=== PATIENT | female | born 1975 | race Caucasian/White ===

== ENCOUNTER 2017-08-04 22:04 | Emergency (ER) | payer MEDICAID ==
[~2017-08-04] VITALS: Ht 167.6 cm; Wt 119.0 kg
[~2017-08-04 22:04] MED LIST: CLON-529 PO; DULO-31 PO; HYDR1TAB PO; IBUP-1984 PO; ONDA4TAB12 PO; PSEU-225 PO
[2017-08-04 22:11] VITALS: BP 154/91
[2017-08-04] MEDS ORDERED: NAPR-56 PO (23:22)
== END 2017-08-04 23:34 | disposition home or self-care (01) ==
LOC: ER 22:05
DX: R10.9 Unspecified abdominal pain (principal); Z90.49 Acquired absence of other specified parts of digestive tract; Z91.040 Latex allergy status; Z79.899 Other long term (current) drug therapy
CPT/HCPCS: 99282

== ENCOUNTER 2017-10-31 18:40 | Emergency (ER) | payer MEDICAID ==
[~2017-10-31] VITALS: Ht 167.6 cm; Wt 118.2 kg
[2017-10-31 19:11] LABS: BASOPHILS % (AUTO) 0.2 % (0-1); EOSINOPHILS # (AUTO) 0.2 X10'3 (0-0.9); EOSINOPHILS % (AUTO) 1.6 % (0-6); HEMATOCRIT 37.5 % (35.0-45.0); HEMOGLOBIN 13.1 g/dl (12.0-16.0); LYMPHOCYTES # (AUTO) 2.1 X10'3 (1.1-4.8); LYMPHOCYTES % (AUTO) 17.3 % (21-51); MEAN CORPUSCULAR HEMOGLOBIN 29.1 PG (27.0-31.0); MEAN CORPUSCULAR VOLUME 83.2 FL (78-98); MEAN PLATELET VOLUME 8.8 FL (7.4-10.4); MONOCYTES # (AUTO) 0.9 X10'3 (0-0.9); NEUTROPHILS % (AUTO) 73.9 % (42-75); PLATELET COUNT 252 X10'3 (140-440); RED BLOOD COUNT 4.51 X10'6 (4.20-5.60); WHITE BLOOD COUNT 12.2 X10'3 (4.5-11.0)
[2017-10-31 19:13] LABS: CLARITY,URINE CLEAR (Clear); COLOR,URINE YELLOW (Yellow); GLUCOSE, URINE NEGATIVE (Neg); KETONES,URINE NEGATIVE (Neg); LEUKOCYTE ESTERASE ,URINE NEGATIVE (Neg); NITRITES, URINE NEGATIVE (Neg); OCCULT BLOOD,URINE LARGE (Neg); PH,URINE 5.5 (4.8-8.0); PROTEIN,URINE NEGATIVE (Neg); UROBILINOGEN,URINE 0.2 E.U/dL (0.2-1.0)
[2017-10-31 19:14] LABS: URINE HCG NEGATIVE (NEG)
[2017-10-31 19:16] LABS: UA COLLECTION TYPE CLN CATCH MIDSTREAM
[2017-10-31 19:25] LABS: BACTERIA,URINE 1+ /HPF (Neg); RBC,URINE 20-50 /HPF (0-2); WBC,URINE 0-4 /HPF (0-4)
[2017-10-31 19:26] LABS: SQUAMOUS EPITHELIAL CELL,UR MANY /LPF (FEW)
[2017-10-31] MEDS ORDERED: ketorolac trometh. 30mg/ml inj. IV ONE (19:30)
[2017-10-31 19:33] LABS: ALANINE AMINOTRANSFERASE 28 U/L (12-78); ALBUMIN 3.8 G/DL (3.4-5.0); ALKALINE PHOSPHATASE 90 IU/L (46-116); ANION GAP 11 (8-16); ASPARTATE AMINO TRANSFERASE 18 U/L (10-37); BILIRUBIN,TOTAL 0.4 MG/DL (0.1-1.0); BLOOD UREA NITROGEN 13 MG/DL (7-18); BUN/CREATININE RATIO 13.7 (6.6-38.0); CHLORIDE 103 MMOL/L (99-107); CREATININE 0.95 MG/DL (0.40-0.90); GLUCOSE 101 MG/DL (70-104); POTASSIUM 3.7 MMOL/L (3.5-5.1); SODIUM 139 MMOL/L (135-145); TOTAL CARBON DIOXIDE 25.5 MMOL/L (24-32); TOTAL PROTEIN 7.8 G/DL (6.4-8.2); eGFR 64 ML/MIN
[2017-10-31] MEDS ORDERED: normal saline 1000ML IV soln IVB ONE (19:45)
[2017-10-31 20:03] VITALS: BP 149/72
[2017-10-31] MEDS ORDERED: HYDROcodone/acetaminophen 5mg/325mg tablet PO ONE (20:15)
[2017-10-31] MEDS ORDERED: tamsulosin 0.4mg capsule PO SCH ×2 (20:20→21:00)
[2017-10-31] MEDS ORDERED: FLO0.4C PO (20:20)
[2017-10-31] MEDS ORDERED: NAPR-56 PO (20:20)
[2017-10-31] MEDS ORDERED: ONDA4TAB9 SL (20:20)
[2017-10-31] MEDS ORDERED: HYDR-569 PO (20:20)
== END 2017-10-31 20:32 | disposition home or self-care (01) ==
LOC: ER 18:40
DX: N20.0 Calculus of kidney (principal); Z90.49 Acquired absence of other specified parts of digestive tract; Z91.040 Latex allergy status; Z79.899 Other long term (current) drug therapy
CPT/HCPCS: 36415; 74176; 80053; 81001; 81025; 85025; 96374; 99285; J1885; J7030

== ENCOUNTER 2018-11-05 19:55 | Emergency (ER) | payer MEDICAID ==
[~2018-11-05] VITALS: Ht 167.6 cm; Wt 124.8 kg
[~2018-11-05 19:55] MED LIST changes: +HYDR-4383 PO
[2018-11-05 20:32] LABS: BASOPHILS % (AUTO) 0.2 % (0-1); EOSINOPHILS # (AUTO) 0.1 X10'3 (0-0.9); EOSINOPHILS % (AUTO) 0.5 % (0-6); HEMATOCRIT 38.5 % (35.0-45.0); LYMPHOCYTES % (AUTO) 8.4 % (21-51); MEAN CORPUSCULAR HEMOGLOBIN 28.7 PG (27.0-31.0); MEAN CORPUSCULAR HGB CONC 33.7 g/dL (33.0-36.5); MEAN CORPUSCULAR VOLUME 85.1 FL (78-98); MEAN PLATELET VOLUME 8.6 FL (7.4-10.4); MONOCYTES # (AUTO) 1.4 X10'3 (0-0.9); MONOCYTES % (AUTO) 11.5 % (2-12); NEUTROPHILS # (AUTO) 9.8 X10'3 (1.8-7.7); NEUTROPHILS % (AUTO) 79.4 % (42-75); PLATELET COUNT 217 X10'3 (140-440); RED BLOOD COUNT 4.52 X10'6 (4.20-5.60); RED CELL DISTRIBUTION WIDTH 14.3 % (11.5-14.5); WHITE BLOOD COUNT 12.3 X10'3 (4.5-11.0)
[2018-11-05 20:42] LABS: CLARITY,URINE CLEAR (Clear); COLOR,URINE YELLOW (Yellow); GLUCOSE, URINE NEGATIVE (Neg); KETONES,URINE NEGATIVE (Neg); LEUKOCYTE ESTERASE ,URINE NEGATIVE (Neg); NITRITES, URINE NEGATIVE (Neg); OCCULT BLOOD,URINE MODERATE (Neg); PROTEIN,URINE NEGATIVE (Neg); UROBILINOGEN,URINE 0.2 E.U/dL (0.2-1.0)
[2018-11-05 20:43] LABS: URINE HCG NEGATIVE (NEG)
[2018-11-05 20:45] LABS: ALANINE AMINOTRANSFERASE 58 U/L (12-78); ALBUMIN 3.7 G/DL (3.4-5.0); ALBUMIN/GLOBULIN RATIO 0.9 (1.1-1.5); ALKALINE PHOSPHATASE 112 IU/L (46-116); ANION GAP 8 (8-16); ASPARTATE AMINO TRANSFERASE 33 U/L (10-37); BILIRUBIN,TOTAL 0.4 MG/DL (0.1-1.0); BLOOD UREA NITROGEN 9 MG/DL (7-18); BUN/CREATININE RATIO 9.6 (6.6-38.0); CALCIUM 9.5 MG/DL (8.5-10.1); CHLORIDE 103 MMOL/L (99-107); CREATININE 0.94 MG/DL (0.40-0.90); GLUCOSE 115 MG/DL (70-104); POTASSIUM 3.4 MMOL/L (3.5-5.1); SODIUM 139 MMOL/L (135-145); TOTAL CARBON DIOXIDE 28.3 MMOL/L (24-32); eGFR 64 ML/MIN
[2018-11-05 20:47] LABS: UA COLLECTION TYPE CLN CATCH MIDSTREAM
[2018-11-05 20:48] LABS: BACTERIA,URINE 1+ /HPF (Neg); HYALINE CASTS 0-3 /LPF (NEGATIVE); MUCUS STRANDS FEW /LPF (Neg); RBC,URINE 0-2 /HPF (0-2); SQUAMOUS EPITHELIAL CELL,UR MANY /LPF (FEW); WBC,URINE 0-4 /HPF (0-4)
[2018-11-05 21:10] LABS: LIPASE 123 U/L (73-393)
[2018-11-05] MEDS ORDERED: iohexol 300mg/ml 100ml inj. ONE (22:36)
--- NOTE | 2018-11-05 23:21 | NUR ---
Patient has had several unsuccessful IV attempts from several nurses. Patient refuses any further IV attempts and states that if she must have an CT with IV contrast that she will follow up with Dr Garcia as an outpatient. Dr. Trevino notified and she states we will change the CT to non-contrast.
--- NOTE | 2018-11-06 02:27 | NUR ---
Patient resting in bed. She is updated on POC. Patient up to restroom independently.
[2018-11-06] MEDS ORDERED: DICY10CA88 PO (03:07)
[2018-11-06 03:16] VITALS: BP 153/94
== END 2018-11-06 03:18 | disposition home or self-care (01) ==
LOC: ER 19:56
DX: K52.9 Noninfective gastroenteritis and colitis, unspecified (principal); Z90.49 Acquired absence of other specified parts of digestive tract; Z98.890 Other specified postprocedural states; Z91.040 Latex allergy status; Z79.899 Other long term (current) drug therapy
CPT/HCPCS: 36415; 74176; 80053; 81001; 81025; 83690; 85025; 85610; 99284; Q9967

== ENCOUNTER 2019-07-12 19:01 | Emergency (ER) | payer MEDICAID ==
[~2019-07-12] VITALS: Ht 167.6 cm; Wt 120.5 kg
[~2019-07-12 19:01] MED LIST changes: +DICY10CA88 PO
[2019-07-12 19:45] LABS: CLARITY,URINE CLEAR (Clear); COLOR,URINE YELLOW (Yellow); GLUCOSE, URINE NEGATIVE (Neg); KETONES,URINE NEGATIVE (Neg); LEUKOCYTE ESTERASE ,URINE NEGATIVE (Neg); NITRITES, URINE NEGATIVE (Neg); OCCULT BLOOD,URINE MODERATE (Neg); PROTEIN,URINE TRACE mg/dl (Neg); UROBILINOGEN,URINE 0.2 E.U/dL (0.2-1.0)
[2019-07-12 19:51] LABS: UA COLLECTION TYPE CLN CATCH MIDSTREAM
[2019-07-12 19:52] LABS: BACTERIA,URINE FEW /HPF (Neg); RBC,URINE 20-50 /HPF (0-2); SQUAMOUS EPITHELIAL CELL,UR FEW /LPF (FEW); WBC,URINE 0-4 /HPF (0-4)
[2019-07-12] MEDS ORDERED: ketorolac trometh. 30mg/ml inj. IM ONE (20:35)
[2019-07-12] MEDS ORDERED: IBUP-1986 PO (20:39)
[2019-07-12] MEDS ORDERED: FLO0.4C PO (20:39)
[2019-07-12 20:54] VITALS: BP 158/87
== END 2019-07-12 20:56 | disposition home or self-care (01) ==
LOC: ER 19:01
DX: N23 Unspecified renal colic (principal); Z90.79 Acquired absence of other genital organ(s); Z98.890 Other specified postprocedural states; Z91.040 Latex allergy status; Z79.899 Other long term (current) drug therapy
CPT/HCPCS: 81001; 96372; 99283; J1885

== ENCOUNTER 2020-11-22 10:33 | Emergency (ER) | payer MEDICAID ==
[~2020-11-22] VITALS: Ht 167.6 cm; Wt 122.0 kg
[~2020-11-22 10:33] MED LIST changes: +IBUP-1986 PO
[2020-11-22 10:54] VITALS: BP 176/98
[2020-11-22] MEDS ORDERED: CEPH250T PO (12:58)
[2020-11-23] MEDS ORDERED: DOXY100C77 PO (21:45)
[2020-11-24] MEDS ORDERED: DOXY100C43 PO (16:03)
== END 2020-11-22 13:16 | disposition home or self-care (01) ==
LOC: ER 10:34
DX: L03.213 Periorbital cellulitis (principal); Z87.440 Personal history of urinary (tract) infections; Z90.49 Acquired absence of other specified parts of digestive tract; Z98.891 History of uterine scar from previous surgery; Z91.040 Latex allergy status; Z79.2 Long term (current) use of antibiotics; Z79.899 Other long term (current) drug therapy
CPT/HCPCS: 99283

== ENCOUNTER 2023-10-20 17:12 | Emergency (ER) | payer MEDICAID, OTHER ==
[~2023-10-20] VITALS: Ht 167.6 cm; Wt 95.8 kg
[~2023-10-20 17:12] MED LIST changes: +ONDA-243 PO; -ONDA4TAB12 PO
[2023-10-20 17:56] LABS: BILIRUBIN,URINE NEGATIVE (Neg); CLARITY,URINE CLEAR (Clear); COLOR,URINE YELLOW (Yellow); GLUCOSE, URINE NEGATIVE (Neg); KETONES,URINE NEGATIVE (Neg); LEUKOCYTE ESTERASE ,URINE TRACE (Neg); NITRITES, URINE NEGATIVE (Neg); OCCULT BLOOD,URINE TRACE-INTACT (Neg); PROTEIN,URINE NEGATIVE (Neg); UROBILINOGEN,URINE 0.2 E.U/dL (0.2-1.0)
[2023-10-20 18:00] LABS: UA COLLECTION TYPE CLN CATCH MIDSTREAM
[2023-10-20 18:02] LABS: BACTERIA,URINE 2+ /HPF (Neg); MUCUS STRANDS FEW /LPF (Neg); SQUAMOUS EPITHELIAL CELL,UR MODERATE /LPF (FEW)
[2023-10-20] MEDS: ketorolac trometh. 30mg/ml inj. IM ONE (18:28)
[2023-10-20 18:41] VITALS: BP 154/90; PULSE 80; RESP 17; TEMP 98.2; O2SAT 96
[2023-10-20] MEDS ORDERED: SULF1TAB45 PO (19:21)
== END 2023-10-20 18:42 | disposition home or self-care (01) ==
LOC: ER 17:12
DX: M25.511 Pain in right shoulder (principal); M54.2 Cervicalgia; Z91.040 Latex allergy status; Z79.899 Other long term (current) drug therapy; Z79.1 Long term (current) use of non-steroidal anti-inflammatories (NSAID); Z87.442 Personal history of urinary calculi; Z90.49 Acquired absence of other specified parts of digestive tract; Z98.890 Other specified postprocedural states
CPT/HCPCS: 81001; 87088; 87186; 96372; 99283; J1885; 87077

== ENCOUNTER 2023-10-20 18:42 | Emergency (ER) | payer MEDICAID ==
[~2023-10-20] VITALS: Ht 167.6 cm; Wt 95.8 kg
[2023-10-20 19:05] VITALS: BP 145/91; PULSE 71; RESP 18; TEMP 99; O2SAT 100
[2023-10-20] MEDS ORDERED: SULF1TAB45 PO (19:21)
== END 2023-10-20 19:30 | disposition home or self-care (01) ==
LOC: ER 18:43
DX: N39.0 Urinary tract infection, site not specified (principal); R30.9 Painful micturition, unspecified; Z91.040 Latex allergy status; Z79.899 Other long term (current) drug therapy; Z79.1 Long term (current) use of non-steroidal anti-inflammatories (NSAID); Z79.2 Long term (current) use of antibiotics; Z90.49 Acquired absence of other specified parts of digestive tract; Z98.890 Other specified postprocedural states
CPT/HCPCS: 99283

== ENCOUNTER 2024-05-16 10:03 | Emergency (ER) | payer SELFPAY ==
[~2024-05-16] VITALS: Ht 167.6 cm; Wt 87.3 kg
[2024-05-16 11:01] LABS: HEMOGLOBIN 13.4 g/dl (12.0-16.0); PLATELET COUNT 208 X10'3 (140-440); WHITE BLOOD COUNT 4.6 X10'3 (4.5-11.0)
[2024-05-16 11:03] LABS: BASOPHILS % (AUTO) 0.5 % (0-1); EOSINOPHILS % (AUTO) 0.2 % (0-6); HEMATOCRIT 39.5 % (35.0-45.0); LYMPHOCYTES # (AUTO) 0.8 X10'3 (1.1-4.8); LYMPHOCYTES % (AUTO) 17.3 % (21-51); MEAN CORPUSCULAR VOLUME 79.5 FL (78-98); MEAN PLATELET VOLUME 9.7 FL (7.4-10.4); MONOCYTES # (AUTO) 0.7 X10'3 (0-0.9); MONOCYTES % (AUTO) 15.6 % (2-12); NEUTROPHILS % (AUTO) 66.4 % (42-75); RED BLOOD COUNT 4.96 X10'6 (4.20-5.60); RED CELL DISTRIBUTION WIDTH 14.8 % (11.5-14.5)
[2024-05-16 11:26] LABS: ALANINE AMINOTRANSFERASE 46 U/L (12-78); ALBUMIN 3.6 G/DL (3.4-5.0); ALBUMIN/GLOBULIN RATIO 0.8 (1.1-1.5); ALKALINE PHOSPHATASE 124 IU/L (46-116); ANION GAP 6 (8-16); ASPARTATE AMINO TRANSFERASE 59 U/L (10-37); BILIRUBIN,TOTAL 0.4 MG/DL (0.1-1.0); BLOOD UREA NITROGEN 12 MG/DL (7-18); BUN/CREATININE RATIO 15.2 (10.0-20.0); CALCIUM 9.2 MG/DL (8.5-10.1); CHLORIDE 106 MMOL/L (99-107); CREATININE 0.79 MG/DL (0.40-0.90); GLUCOSE 100 MG/DL (70-104); POTASSIUM 3.6 MMOL/L (3.5-5.1); SODIUM 140 MMOL/L (135-145); TOTAL CARBON DIOXIDE 27.6 MMOL/L (24-32); eGFR 77 ML/MIN
[2024-05-16] MEDS: normal saline 1000ml 1,000 ML IV ONE (12:44)
[2024-05-16 12:57] LABS: BASOPHILS % (AUTO) 0.5 % (0-1); EOSINOPHILS % (AUTO) 0.1 % (0-6); HEMATOCRIT 39.7 % (35.0-45.0); HEMOGLOBIN 13.4 g/dl (12.0-16.0); LYMPHOCYTES # (AUTO) 0.8 X10'3 (1.1-4.8); LYMPHOCYTES % (AUTO) 19.2 % (21-51); MEAN CORPUSCULAR HEMOGLOBIN 27.2 PG (27.0-31.0); MEAN CORPUSCULAR HGB CONC 33.8 g/dL (33.0-36.5); MEAN CORPUSCULAR VOLUME 80.5 FL (78-98); MEAN PLATELET VOLUME 9.4 FL (7.4-10.4); MONOCYTES # (AUTO) 0.8 X10'3 (0-0.9); MONOCYTES % (AUTO) 18.3 % (2-12); NEUTROPHILS # (AUTO) 2.7 X10'3 (1.8-7.7); NEUTROPHILS % (AUTO) 61.9 % (42-75); PLATELET COUNT 197 X10'3 (140-440); RED BLOOD COUNT 4.93 X10'6 (4.20-5.60); RED CELL DISTRIBUTION WIDTH 14.9 % (11.5-14.5); WHITE BLOOD COUNT 4.3 X10'3 (4.5-11.0)
[2024-05-16 13:12] LABS: PRO BRAIN NATRIURETIC PEPTIDE 34 PG/ML (0-125)
[2024-05-16 13:29] LABS: TOTAL CELLS COUNTED 100
[2024-05-16 13:31] LABS: PLATELET ESTIMATE NORMAL
[2024-05-16 14:09] VITALS: BP 147/74; PULSE 54; RESP 12; TEMP 98.3; O2SAT 97
== END 2024-05-16 14:16 | disposition home or self-care (01) ==
LOC: ER 10:04
DX: R42 Dizziness and giddiness (principal); B97.89 Other viral agents as the cause of diseases classified elsewhere; Z87.442 Personal history of urinary calculi; Z91.040 Latex allergy status; Z90.49 Acquired absence of other specified parts of digestive tract; Z20.822 Contact with and (suspected) exposure to COVID-19
CPT/HCPCS: 36415; 71045; 80053; 83880; 84484; 85007; 85025; 87502; 87503; 87811; 93005; 96360; 99285; J7030